=== PATIENT | male | born 1980 | race Hispanic/Latino ===

== ENCOUNTER 2021-01-24 07:34 | Outpatient (CLI) | payer BC ==
[2021-01-24] MEDS ORDERED: Iopamidol-370 76% 500 ML 1 ML ONE (09:10)
== END 2021-01-24 07:35 | disposition home or self-care (01) ==
LOC: BICCT 07:34
PROVIDERS: ATTEND Physician Assistant Medical
DX: R10.12 Left upper quadrant pain (principal)
CPT/HCPCS: 74177

== ENCOUNTER 2022-04-16 10:35 | Outpatient (CLI) | payer BC ==
[~2022-04-16 10:35] MED LIST: Iopamidol-370 76% 500 ML 1 ML ONE
== END 2022-04-16 10:36 | disposition home or self-care (01) ==
LOC: BICCT 10:35
PROVIDERS: ATTEND Physician Assistant Medical
DX: R10.12 Left upper quadrant pain (principal); K21.00 Gastro-esophageal reflux disease with esophagitis, without bleeding
CPT/HCPCS: 74177; 82565

== ENCOUNTER 2022-08-12 11:56 | Outpatient (CLI) | payer BC | END 2022-08-12 11:57 | disposition home or self-care (01) | LOC: BICULT 11:56 | PROVIDERS: ATTEND Physician Assistant Medical | DX: R10.11 Right upper quadrant pain (principal) | CPT/HCPCS: 76700 ==